=== PATIENT | female | born 1975 | race Caucasian/White ===

== ENCOUNTER 2018-11-27 05:43 | Inpatient (IN) | payer OTHER ==
[2018-11-27] MEDS ORDERED: LIDOCAINE 2% (SDV) 5 ML INJ (07:26)
[2018-11-27] MEDS ORDERED: ROCURONIUM 50 MG INJ ×2 (07:26→08:30)
[2018-11-27] MEDS ORDERED: PROPOFOL 20 ML (07:26)
[2018-11-27] MEDS ORDERED: NEOSTIGMINE 3 MG/3 ML SYRINGE ×2 (07:26→08:29)
[2018-11-27] MEDS ORDERED: SUCCINYLCHOLINE CHLORIDE 100 MG/5 ML SYG IV (07:26)
[2018-11-27] MEDS ORDERED: GLYCOPYRROLATE 0.4 MG INJ ×2 (07:26→08:29)
[2018-11-27] MEDS ORDERED: MEPERIDINE 100 MG INJ (07:27)
[2018-11-27] MEDS ORDERED: CEFAZOLIN 1 GM INJ (08:29)
[2018-11-27] MEDS ORDERED: METOCLOPRAMIDE 10 MG INJ (08:29)
[2018-11-27] MEDS ORDERED: ONDANSETRON 4 MG INJ (08:29)
[2018-11-27] MEDS ORDERED: SEVOFLURANE 15 MIN (09:00)
[2018-11-27] MEDS ORDERED: EPHEDrine 25 MG/5 ML SYG (09:07)
[2018-11-27] MEDS ORDERED: HYDROmorphONE 1 MG/5 ML IV SYRINGE IV (09:30)
[2018-11-27] MEDS ORDERED: LABETALOL HCL 20MG INJ IV (09:30)
[2018-11-27] MEDS ORDERED: METOCLOPRAMIDE 10 MG INJ IV (09:30)
[2018-11-27] MEDS ORDERED: FENTAnyl 50 MCG/ML VIAL IV ×3 (09:30)
[2018-11-27] MEDS ORDERED: MIDAZOLAM 1 MG/ML 2 ML INJ IV (09:30)
[2018-11-27] MEDS ORDERED: hydrALAzine 20 MG INJ IV (09:30)
[2018-11-27] MEDS ORDERED: EPHEDrine 25 MG/5 ML SYG IV (09:30)
[2018-11-27] MEDS ORDERED: DIPHENHYDRAMINE 50 MG INJ IV (09:30)
[2018-11-27] MEDS ORDERED: ALBUTEROL 18 GM INHALER INH (10:00)
[2018-11-27] MEDS ORDERED: KETOROLAC 30 MG INJ IV (10:00)
[2018-11-27] MEDS ORDERED: ZOLPIDEM 5 MG TAB PO (10:00)
[2018-11-27] MEDS ORDERED: DIPHENHYDRAMINE 50 MG CAP PO (10:00)
[2018-11-27] MEDS: ONDANSETRON 4 MG INJ IV (10:21)
[2018-11-27] MEDS: MEPERIDINE 25 MG INJ IV (10:21)
[2018-11-27] MEDS: HYDROmorphONE 1 MG/5 ML IV SYRINGE IV ×2 (10:28→10:39)
[2018-11-27] MEDS: ALBUTEROL 18 GM INHALER INH ×3 (13:00→21:00)
[2018-11-27] MEDS: LACTATED RINGER'S 1,000 ML IV ×3 (13:13→21:41)
[2018-11-27] MEDS: CEFAZOLIN 1 GM/50 ML (PMX) 50 ML IVPB ×2 (13:48→21:43)
[2018-11-27] MEDS: METOCLOPRAMIDE 10 MG TAB PO ×2 (13:49→17:50)
[2018-11-27] MEDS: KETOROLAC 30 MG INJ IV ×2 (14:04→19:51)
[2018-11-27] MEDS: ONDANSETRON INJ 6 MG in DEXTROSE 5% 50 ML IVPB (17:07)
[2018-11-27] MEDS: ENOXAPARIN 30 MG/0.3 ML SYG SC (21:46)
[2018-11-28] MEDS: HYDROCODONE/APAP (5/325) TAB PO ×3 (00:37→14:45)
[2018-11-28] MEDS: METOCLOPRAMIDE 10 MG TAB PO ×4 (00:37→17:42)
[2018-11-28] MEDS: ALBUTEROL 18 GM INHALER INH ×6 (01:00→21:00)
[2018-11-28] MEDS: KETOROLAC 30 MG INJ IV ×3 (01:33→17:42)
[2018-11-28] MEDS: CEFAZOLIN 1 GM/50 ML (PMX) 50 ML IVPB ×3 (05:05→21:38)
[2018-11-28 05:27] LABS: ADD MAN DIFF? NO
[2018-11-28 05:40] LABS: WHITE BLOOD COUNT 9.9 10^3/ul (4.8-10.8)
[2018-11-28 05:40] LABS: BASOPHIL # 0.1 10^3/ul (0.0-0.1); BASOPHILS % 0.5 % (0.0-2.0); EOSINOPHILS # 0.1 10^3/ul (0.0-0.5); EOSINOPHILS % 1.4 % (0.0-7.0); HEMATOCRIT 36.3 % (37.0-47.0); HEMOGLOBIN 11.6 g/dl (12.0-16.0); LYMPHOCYTES # 2.2 10^3/ul (0.8-2.9); LYMPHOCYTES % 22.5 % (15.0-51.0); MEAN CORPUSCULAR HEMOGLOBIN 28.9 pg (29.0-33.0); MEAN CORPUSCULAR VOLUME 90.3 fl (82.0-101.0); MEAN PLATELET VOLUME 10.8 fl (7.4-10.4); MONOCYTE # 0.7 10^3/ul (0.3-0.9); MONOCYTES % 7.5 % (0.0-11.0); NEUTROPHIL # 6.7 10^3/ul (1.6-7.5); NEUTROPHILS % 67.8 % (39.0-77.0); PLATELET COUNT 233 10^3/UL (140-415); RED BLOOD COUNT 4.02 10^6/ul (4.20-5.40); RED CELL DISTRIBUTION WIDTH 13.1 % (11.5-14.5)
[2018-11-28 06:23] LABS: ANION GAP 7 (5-13); BLOOD UREA NITROGEN 5 mg/dl (7-20); CARBON DIOXIDE 28 mmol/L (21-31); CHLORIDE 103 mmol/L (97-110); CREATININE 0.53 mg/dl (0.44-1.00); POTASSIUM 3.9 mmol/L (3.5-5.1); SODIUM 138 mmol/L (135-144)
[2018-11-28] MEDS: LACTATED RINGER'S 1,000 ML IV (07:53)
[2018-11-28] MEDS ORDERED: metFORMIN 500 MG TAB PO (08:00)
[2018-11-28] MEDS: metFORMIN 500 MG TAB PO (10:43)
[2018-11-28] MEDS: ENOXAPARIN 30 MG/0.3 ML SYG SC ×2 (11:18→21:44)
[2018-11-28] MEDS: BISACODYL (EC) 5 MG TAB PO (12:20)
[2018-11-28] MEDS: ACCU-CHEK XX (17:25)
[2018-11-29] MEDS: KETOROLAC 30 MG INJ IV ×3 (00:08→12:00)
[2018-11-29] MEDS: METOCLOPRAMIDE 10 MG TAB PO ×3 (00:11→12:00)
[2018-11-29] MEDS: ALBUTEROL 18 GM INHALER INH ×3 (00:12→08:47)
[2018-11-29 05:29] LABS: GLUCOSE, FASTING 116 mg/dl (70-110)
[2018-11-29] MEDS: CEFAZOLIN 1 GM/50 ML (PMX) 50 ML IVPB (05:53)
[2018-11-29] MEDS: ACCU-CHEK XX (08:09)
[2018-11-29] MEDS: metFORMIN 500 MG TAB PO (08:44)
[2018-11-29] MEDS: ENOXAPARIN 30 MG/0.3 ML SYG SC (08:46)
[2018-11-29] MEDS: HYDROCODONE/APAP (5/325) TAB PO (09:06)
== END 2018-11-29 12:20 | disposition home or self-care (01) | DRG 743 ==
LOC: REC 05:43 → MS1 12:05
PROVIDERS: Obstetrics & Gynecology
PROC: 0UT90ZZ Resection of Uterus, Open Approach (ICD-10-PCS; principal; 2018-11-27 07:30)
PROC: 0UT70ZZ Resection of Bilateral Fallopian Tubes, Open Approach (ICD-10-PCS; 2018-11-27 07:30)
DX: D25.1 Intramural leiomyoma of uterus (principal); E11.65 Type 2 diabetes mellitus with hyperglycemia; D25.2 Subserosal leiomyoma of uterus; N92.1 Excessive and frequent menstruation with irregular cycle; N39.3 Stress incontinence (female) (male); R10.2 Pelvic and perineal pain; Z90.49 Acquired absence of other specified parts of digestive tract
CPT/HCPCS: 80051; 82565; 82947; 82962; 84520; 85025; 86850; 86900; 86901; 87086; 88302

== ENCOUNTER 2018-12-01 01:55 | Emergency (ER) | payer OTHER ==
[2018-12-01] MEDS: ONDANSETRON (ODT) 4 MG TAB ODT (02:20)
[2018-12-01] MEDS: morphine 4 MG/ML VIAL IM (02:21)
[2018-12-01 02:26] LABS: URINE PH (Dip) POC 7.5 (5.0-8.5)
[2018-12-01 02:26] LABS: URINE BLOOD (Dip) POC Negative (NEGATIVE); URINE GLUCOSE (Dip) POC Negative (NEGATIVE); URINE KETONES (Dip) POC Negative (NEGATIVE); URINE LEUKOCYTE EST (Dip) POC Negative (NEGATIVE); URINE NITRITE (Dip) POC Negative (NEGATIVE); URINE TOTAL PROTEIN POC Negative (NEGATIVE)
== END 2018-12-01 03:04 | disposition home or self-care (01) ==
LOC: E/R 01:55
DX: G89.18 Other acute postprocedural pain (principal); J45.909 Unspecified asthma, uncomplicated; E11.9 Type 2 diabetes mellitus without complications; Z79.84 Long term (current) use of oral hypoglycemic drugs; Z90.710 Acquired absence of both cervix and uterus
CPT/HCPCS: 81003; 96372; 99284-25